=== PATIENT | male | born 1990 | race Caucasian/White ===

== ENCOUNTER 2019-02-27 13:32 | Emergency (ER) | payer SELFPAY ==
[~2019-02-27] VITALS: Ht 180.3 cm; Wt 113.0 kg
[~2019-02-27 13:32] MED LIST: ENOX80DI10 SUBCUT; PER10325T PO; WARF6TAB49 PO
[2019-02-27] MEDS ORDERED: ketorolac trometh inj. 60 MG/2 ML VIAL IM ONE (14:10)
[2019-02-27 14:29] LABS: BASOPHILS % (AUTO) 0.2 % (0-1); EOSINOPHILS # (AUTO) 0.3 X10'3 (0-0.9); EOSINOPHILS % (AUTO) 3.4 % (0-6); HEMATOCRIT 45.4 % (42.0-52.0); HEMOGLOBIN 15.1 g/dl (14.0-17.9); LYMPHOCYTES # (AUTO) 3.7 X10'3 (1.1-4.8); LYMPHOCYTES % (AUTO) 36.2 % (21-51); MEAN CORPUSCULAR HGB CONC 33.2 g/dL (33.0-36.5); MEAN CORPUSCULAR VOLUME 96.5 FL (78-98); MEAN PLATELET VOLUME 8.3 FL (7.4-10.4); MONOCYTES # (AUTO) 2.1 X10'3 (0-0.9); MONOCYTES % (AUTO) 20.7 % (2-12); NEUTROPHILS % (AUTO) 39.5 % (42-75); PLATELET COUNT 345 X10'3 (140-440); RED CELL DISTRIBUTION WIDTH 14.5 % (11.5-14.5); WHITE BLOOD COUNT 10.1 X10'3 (4.5-11.0)
[2019-02-27 14:35] LABS: ALANINE AMINOTRANSFERASE 37 U/L (12-78); ALBUMIN 2.7 G/DL (3.4-5.0); ALBUMIN/GLOBULIN RATIO 0.7 (1.1-1.5); ALKALINE PHOSPHATASE 83 IU/L (46-116); ANION GAP 11 (8-16); ASPARTATE AMINO TRANSFERASE 18 U/L (10-37); BILIRUBIN,TOTAL 0.5 MG/DL (0.1-1.0); BLOOD UREA NITROGEN 8 MG/DL (7-18); BUN/CREATININE RATIO 9.3 (5.4-32.0); CALCIUM 7.9 MG/DL (8.5-10.1); CHLORIDE 111 MMOL/L (99-107); CREATININE 0.86 MG/DL (0.60-1.10); GLUCOSE 84 MG/DL (70-104); LIPASE 182 U/L (73-393); POTASSIUM 3.7 MMOL/L (3.5-5.1); SODIUM 145 MMOL/L (135-145); TOTAL CARBON DIOXIDE 23.5 MMOL/L (24-32); TOTAL PROTEIN 6.4 G/DL (6.4-8.2); eGFR > 90 ML/MIN
[2019-02-27] MEDS ORDERED: HYDR-4353 PO (15:12)
[2019-02-27 15:19] VITALS: BP 111/68
== END 2019-02-27 15:21 | disposition home or self-care (01) ==
LOC: ER 13:33
DX: K43.9 Ventral hernia without obstruction or gangrene (principal); E11.9 Type 2 diabetes mellitus without complications; F10.99 Alcohol use, unspecified with unspecified alcohol-induced disorder; Z86.718 Personal history of other venous thrombosis and embolism; Z90.49 Acquired absence of other specified parts of digestive tract; Z90.89 Acquired absence of other organs; Z79.01 Long term (current) use of anticoagulants; Z79.899 Other long term (current) drug therapy; Y90.9 Presence of alcohol in blood, level not specified
CPT/HCPCS: 36415; 74176; 80053; 83690; 85025; 85610; 96372; 99284; J1885

== ENCOUNTER 2019-07-21 15:42 | Inpatient (IN) | payer BC, MEDICAID ==
[~2019-07-21] VITALS: Ht 180.3 cm; Wt 119.0 kg
[2019-07-21] MEDS ORDERED: ondansetron/PF 4mg/2ml inj IV ONE (17:20)
[2019-07-21] MEDS ORDERED: normal saline 1000ML IV soln IVB ONE (17:20)
[2019-07-21] MEDS ORDERED: morphine 4 MG/ML inj SYRINge IV ONE (17:20)
[2019-07-21] MEDS ORDERED: iohexol 300mg/ml 100ml inj. ONE (17:54)
[2019-07-21 17:59] LABS: BASOPHILS % (AUTO) 0.5 % (0-1); EOSINOPHILS # (AUTO) 0.3 X10'3 (0-0.9); EOSINOPHILS % (AUTO) 3.2 % (0-6); HEMATOCRIT 45.5 % (42.0-52.0); HEMOGLOBIN 15.5 g/dl (14.0-17.9); LYMPHOCYTES # (AUTO) 2.9 X10'3 (1.1-4.8); LYMPHOCYTES % (AUTO) 33.2 % (21-51); MEAN CORPUSCULAR HEMOGLOBIN 33.2 PG (27.0-31.0); MEAN CORPUSCULAR HGB CONC 34.1 g/dL (33.0-36.5); MEAN CORPUSCULAR VOLUME 97.3 FL (78-98); MEAN PLATELET VOLUME 8.4 FL (7.4-10.4); MONOCYTES # (AUTO) 1.3 X10'3 (0-0.9); NEUTROPHILS # (AUTO) 4.3 X10'3 (1.8-7.7); NEUTROPHILS % (AUTO) 48.1 % (42-75); PLATELET COUNT 491 X10'3 (140-440); RED BLOOD COUNT 4.68 X10'6 (4.70-6.10); RED CELL DISTRIBUTION WIDTH 14.1 % (11.5-14.5); WHITE BLOOD COUNT 8.9 X10'3 (4.5-11.0)
[2019-07-21 18:25] LABS: PARTIAL THROMBOPLASTIN TIME 46 SECONDS (22-32)
[2019-07-21 18:32] LABS: ALANINE AMINOTRANSFERASE 47 U/L (12-78); ALBUMIN 3.1 G/DL (3.4-5.0); ALBUMIN/GLOBULIN RATIO 0.7 (1.1-1.5); ALKALINE PHOSPHATASE 103 IU/L (46-116); ANION GAP 8 (8-16); ASPARTATE AMINO TRANSFERASE 40 U/L (10-37); BILIRUBIN,TOTAL 0.3 MG/DL (0.1-1.0); BLOOD UREA NITROGEN 10 MG/DL (7-18); BUN/CREATININE RATIO 11.4 (5.4-32.0); CALCIUM 9.1 MG/DL (8.5-10.1); CHLORIDE 113 MMOL/L (99-107); CREATININE 0.88 MG/DL (0.60-1.10); GLUCOSE 81 MG/DL (70-104); LIPASE 146 U/L (73-393); MAGNESIUM 1.9 MG/DL (1.5-2.4); POTASSIUM 3.9 MMOL/L (3.5-5.1); SODIUM 148 MMOL/L (135-145); TOTAL CARBON DIOXIDE 27.2 MMOL/L (24-32); TOTAL PROTEIN 7.4 G/DL (6.4-8.2); eGFR > 90 ML/MIN
[2019-07-21] MEDS ORDERED: piperacillin/tazo 3.375gm/50ml 50 ML IV ONE (19:10)
[2019-07-21] MEDS ORDERED: VANCOMYCIN 1gm/H2O 200ml PB 200 ML IV ONE (19:15)
[2019-07-21] MEDS: morphine 2 MG/ML inj. syringe IV PRN ×2 (19:54→21:51)
--- NOTE | 2019-07-21 21:12 | NUR ---
pt moved to hospital bed for comfort. He is also given dinner. Pt will be NPO at midnight.
[2019-07-21] MEDS ORDERED: morphine 2 MG/ML inj. syringe IV PRN (21:15)
[2019-07-21] MEDS ORDERED: ondansetron/PF 4mg/2ml inj IV PRN (21:15)
[2019-07-21] MEDS: normal saline 1000ml 1,000 ML IV SCH (21:18)
--- NOTE | 2019-07-21 21:21 | NUR ---
PER PATIENT DR. HAMMOND TOLD HIM NOT TO TAKE HIS COUMADIN TONIGHT. PHARMACIST NOTIFIED. MED REC COMPLETED, DR. CHAMBERS JUST AT BEDSIDE FOR ADMISSION.
[2019-07-21] MEDS ORDERED: AMOX-580 PO (22:50)
[2019-07-21] MEDS ORDERED: OXYC-511 PO (22:50)
[2019-07-22] VITALS (16 sets, daily range): BP systolic 92–123; BP diastolic 49–69
--- NOTE | 2019-07-22 00:16 | NUR ---
Pt transferred via bed to 20. Educated that he is NPO now, and that an antibiotic is ordered for 0200. Pt requesting pain medication but per orders this RN is unable to administer at this time. Pt verblaized understanding, and then stated he would attempt to sleep. Belongings at bedside.
--- NOTE | 2019-07-22 01:19 | NUR ---
Pt sleeping, appears comfortable. No distress noted, will continue to monitor.
[2019-07-22] MEDS: clindamycin 600mg/D5W 50ml 50 ML IV SCH ×4 (02:07→19:33)
[2019-07-22] MEDS: morphine 2 MG/ML inj. syringe IV PRN ×4 (02:10→23:04)
--- NOTE | 2019-07-22 02:55 | NUR ---
Pt given scheduled antibitoic and requested pain medication for abdominal pain 02/19. Pt not sleeping at this time due to the floor activities. This RN encouraged pt to close eyes to attempt to rest, and offerred ear plugs which the pt declined.
--- NOTE | 2019-07-22 07:30 | NUR ---
Patient in room [facility]. I have received report from Renetta PERRY and had the opportunity to ask questions and assume patient care.
[2019-07-22] MEDS: normal saline 1000ml 1,000 ML IV SCH ×2 (07:58→17:12)
[2019-07-22 11:14] LABS: BASOPHILS % (AUTO) 0.3 % (0-1); EOSINOPHILS # (AUTO) 0.4 X10'3 (0-0.9); EOSINOPHILS % (AUTO) 6.7 % (0-6); HEMATOCRIT 41.3 % (42.0-52.0); HEMOGLOBIN 13.9 g/dl (14.0-17.9); LYMPHOCYTES # (AUTO) 1.9 X10'3 (1.1-4.8); LYMPHOCYTES % (AUTO) 31.1 % (21-51); MEAN CORPUSCULAR HEMOGLOBIN 32.6 PG (27.0-31.0); MEAN CORPUSCULAR HGB CONC 33.7 g/dL (33.0-36.5); MEAN CORPUSCULAR VOLUME 96.5 FL (78-98); MEAN PLATELET VOLUME 8.1 FL (7.4-10.4); MONOCYTES # (AUTO) 0.9 X10'3 (0-0.9); MONOCYTES % (AUTO) 14.4 % (2-12); NEUTROPHILS # (AUTO) 2.8 X10'3 (1.8-7.7); NEUTROPHILS % (AUTO) 47.5 % (42-75); PLATELET COUNT 453 X10'3 (140-440); RED BLOOD COUNT 4.28 X10'6 (4.70-6.10)
--- NOTE | 2019-07-22 14:30 | NUR ---
PATIENT A&OX4, STATES PAIN BETTER CONTROLLED, V/S WNL, NEUROVASCULAR CHECKS INTACT, 20G PIV RUE, SCD ON, WV DRESSING TO ABDOMEN CDI AT 125 CONT SUCTION WITH NO LEAKS DETECTED. PATIENT TAKEN TO 324A WITH ALL BELONGINGS AND HOOKED UP TO MONITORS IN ROOM AND REPORT GIVEN TO RN WHO HAS TAKEN OVER PATIENT CARE.
[2019-07-22] MEDS ORDERED: ringers solution, lacted 1,000 ML IV SCH (14:46)
[2019-07-22] MEDS ORDERED: fentaNYL/PF 50MCG/1 ML 2ML syringe ONE (14:50)
[2019-07-22] MEDS ORDERED: fentaNYL/PF 50MCG/1 ML 2ML syringe IV PRN (14:50)
[2019-07-22] MEDS ORDERED: labetalol 20mg/4ml (5mg/ml) syringe IV PRN (14:50)
[2019-07-22] MEDS ORDERED: midazolam 2 mg/2 ml injection ONE (14:50)
[2019-07-22] MEDS ORDERED: morphine 4 MG/ML inj SYRINge IV PRN ×2 (14:50)
[2019-07-22] MEDS ORDERED: hydrALAZINE 20mg/ml inj. IV PRN (14:50)
[2019-07-22] MEDS ORDERED: ondansetron/PF 4mg/2ml inj IV PRN (14:50)
[2019-07-22] MEDS ORDERED: LIDOcaine 1%/PF 5ML 10 MG/ML VIAL ONE (15:06)
[2019-07-22] MEDS ORDERED: sevoflurane 250ml liquid IH ONE (15:06)
[2019-07-22] MEDS ORDERED: propofol 10mg/ml 20ml vial IV ONE (15:06)
[2019-07-22] MEDS ORDERED: HYDROcodone/acetaminophen 5mg/325mg tablet PO PRN (15:45)
--- NOTE | 2019-07-22 15:50 | NUR ---
Received from OR via BED, accompanied by Anesthesiologist DR COLEMAN--- and report given by Anesthesiolgist. PATIENT A&OX4, DENIES PAIN, V/S WNL, NEUROVASCULAR CHECKS INTACT, 20G PIV RUE, SCD ON, WV DRESSING TO ABDOMEN CDI AT 125 CONT SUCTION WITH NO LEAKS DETECTED.
[2019-07-22] MEDS: fentaNYL/PF 50MCG/1 ML 2ML syringe IV PRN ×2 (16:04→16:14)
--- NOTE | 2019-07-22 18:30 | NUR ---
Patient in room [facility]. I have received report from ORLANDO Oliver and had the opportunity to ask questions and assume patient care. pT awake alert and oriented, sitting up in bed toll reg dinner. Visitor at bedside. Addendum: 07/22/19 at 1904 by Kait Haile RN Amended: Links added.
--- NOTE | 2019-07-22 18:31 | NUR ---
Problems reprioritized. Patient report given, questions answered & plan of care reviewed with Caitie PERRY.
--- NOTE | 2019-07-22 19:30 | NUR ---
Req pain medications, states throbbing pain. mid abd wound vac intact. bs+, lungs clear. scd in place. Addendum: 07/22/19 at 1950 by Kait Haile RN Amended: Links added.
[2019-07-22] MEDS: lactobacillus rhamnosus 10,000 MMU CELLS/CAPSULE PO SCH (19:33)
[2019-07-22] MEDS: HYDROcodone/acetaminophen 10/325mg tab PO PRN (19:33)
[2019-07-23] VITALS: BP 96/51
[2019-07-23] MEDS: clindamycin 600mg/D5W 50ml 50 ML IV SCH ×4 (01:59→20:15)
[2019-07-23] MEDS: normal saline 1000ml 1,000 ML IV SCH (03:12)
[2019-07-23] MEDS: morphine 2 MG/ML inj. syringe IV PRN ×4 (03:26→20:16)
[2019-07-23 05:30] LABS: BASOPHILS % (AUTO) 0.5 % (0-1); EOSINOPHILS # (AUTO) 0.5 X10'3 (0-0.9); HEMATOCRIT 39.5 % (42.0-52.0); HEMOGLOBIN 13.6 g/dl (14.0-17.9); LYMPHOCYTES # (AUTO) 2.5 X10'3 (1.1-4.8); LYMPHOCYTES % (AUTO) 34.7 % (21-51); MEAN CORPUSCULAR HEMOGLOBIN 32.9 PG (27.0-31.0); MEAN CORPUSCULAR HGB CONC 34.3 g/dL (33.0-36.5); MEAN CORPUSCULAR VOLUME 95.9 FL (78-98); MEAN PLATELET VOLUME 8.5 FL (7.4-10.4); MONOCYTES # (AUTO) 1.1 X10'3 (0-0.9); MONOCYTES % (AUTO) 15.6 % (2-12); NEUTROPHILS % (AUTO) 42.2 % (42-75); PLATELET COUNT 459 X10'3 (140-440); RED BLOOD COUNT 4.12 X10'6 (4.70-6.10); RED CELL DISTRIBUTION WIDTH 13.9 % (11.5-14.5); WHITE BLOOD COUNT 7.1 X10'3 (4.5-11.0)
[2019-07-23 06:30] VITALS: BP 98/54
--- NOTE | 2019-07-23 07:00 | NUR ---
Patient in room [facility]. I have received report from ORLANDO Blood and had the opportunity to ask questions and assume patient care.
--- NOTE | 2019-07-23 07:01 | NUR ---
Problems reprioritized. Patient report given, questions answered & plan of care reviewed with ORLANDO Jason. Addendum: 07/23/19 at 0701 by Kait Haile RN Amended: Links added.
[2019-07-23] MEDS: lactobacillus rhamnosus 10,000 MMU CELLS/CAPSULE PO SCH ×2 (07:57→20:15)
[2019-07-23 11:00] VITALS: BP 103/62
--- NOTE | 2019-07-23 18:40 | NUR ---
Patient in room [facility]. I have received report from ORLANDO Jason and had the opportunity to ask questions and assume patient care. Addendum: 07/23/19 at 1854 by Kait Haile RN Amended: Links added.
--- NOTE | 2019-07-23 18:40 | NUR ---
Problems reprioritized. Patient report given, questions answered & plan of care reviewed with ORLANDO Rodriguez.
[2019-07-23 20:00] VITALS: BP 109/61
[2019-07-23] MEDS ORDERED: warfarin 3mg tablet PO ONE (21:00)
[2019-07-24] VITALS: BP 106/53
[2019-07-24] MEDS: morphine 2 MG/ML inj. syringe IV PRN ×5 (00:04→18:56)
[2019-07-24] MEDS: clindamycin 600mg/D5W 50ml 50 ML IV SCH ×4 (01:24→20:45)
[2019-07-24 05:24] LABS: BASOPHILS % (AUTO) 0.4 % (0-1); EOSINOPHILS # (AUTO) 0.3 X10'3 (0-0.9); EOSINOPHILS % (AUTO) 5.7 % (0-6); HEMOGLOBIN 14.3 g/dl (14.0-17.9); LYMPHOCYTES # (AUTO) 2.4 X10'3 (1.1-4.8); LYMPHOCYTES % (AUTO) 40.1 % (21-51); MEAN CORPUSCULAR HEMOGLOBIN 32.5 PG (27.0-31.0); MEAN CORPUSCULAR VOLUME 95.7 FL (78-98); MEAN PLATELET VOLUME 8.6 FL (7.4-10.4); NEUTROPHILS # (AUTO) 2.3 X10'3 (1.8-7.7); NEUTROPHILS % (AUTO) 37.8 % (42-75); PLATELET COUNT 434 X10'3 (140-440); RED BLOOD COUNT 4.39 X10'6 (4.70-6.10); RED CELL DISTRIBUTION WIDTH 13.7 % (11.5-14.5); WHITE BLOOD COUNT 6.1 X10'3 (4.5-11.0)
[2019-07-24 06:01] LABS: TOTAL CELLS COUNTED 100
[2019-07-24 06:02] LABS: PLATELET ESTIMATE NORMAL
--- NOTE | 2019-07-24 06:10 | NUR ---
Patient in room [facility]. I have received report from ORLANDO Rodriguez and had the opportunity to ask questions and assume patient care.
[2019-07-24 06:30] VITALS: BP 100/56
--- NOTE | 2019-07-24 06:30 | NUR ---
Problems reprioritized. Patient report given, questions answered & plan of care reviewed with ORLANDO WEI. Addendum: 07/24/19 at 0657 by Kait Haile RN Amended: Links added.
[2019-07-24] MEDS: lactobacillus rhamnosus 10,000 MMU CELLS/CAPSULE PO SCH ×2 (08:09→20:45)
[2019-07-24 11:00] VITALS: BP 110/49
--- NOTE | 2019-07-24 18:30 | NUR ---
Problems reprioritized. Patient report given, questions answered & plan of care reviewed with ORLANDO Pepper.
--- NOTE | 2019-07-24 18:30 | NUR ---
Patient in room [facility]. I have received report from SANJUANA and had the opportunity to ask questions and assume patient care.
[2019-07-24 19:00] VITALS: BP 109/67
[2019-07-24] MEDS: HYDROcodone/acetaminophen 10/325mg tab PO PRN (20:46)
[2019-07-24] MEDS ORDERED: warfarin 5mg tablet PO ONE (21:00)
[2019-07-25] VITALS: BP 102/56
[2019-07-25] MEDS: morphine 2 MG/ML inj. syringe IV PRN ×3 (00:39→10:10)
[2019-07-25] MEDS: clindamycin 600mg/D5W 50ml 50 ML IV SCH ×3 (02:10→15:25)
--- NOTE | 2019-07-25 06:05 | NUR ---
Patient in room [facility]. I have received report from ORLANDO Pepper and had the opportunity to ask questions and assume patient care.
--- NOTE | 2019-07-25 06:16 | NUR ---
Problems reprioritized. Patient report given, questions answered & plan of care reviewed with SANJUANA.
[2019-07-25 06:30] VITALS: BP 105/56
[2019-07-25] MEDS: lactobacillus rhamnosus 10,000 MMU CELLS/CAPSULE PO SCH (09:01)
[2019-07-25 11:00] VITALS: BP 106/53
[2019-07-25] MEDS: HYDROcodone/acetaminophen 10/325mg tab PO PRN (15:28)
--- NOTE | 2019-07-25 15:53 | NUR ---
DC & home wound vac inst provided to pt.
--- NOTE | 2019-07-25 17:30 | NUR ---
IV DC'd, tip intact. All belongings sent w/pt. Pt ambulated to front lobby.
[2019-07-25] MEDS ORDERED: warfarin 5mg tablet PO ONE (21:00)
== END 2019-07-25 17:10 | disposition home or self-care (01) | DRG 908 ==
LOC: ER 15:43 → ED HOLD 21:21 → SUR 3N 07-22 07:57
PROVIDERS: ADMIT Internal Medicine; ATTEND Internal Medicine
PROC: BW211ZZ Computerized Tomography (CT Scan) of Abdomen and Pelvis using Low Osmolar Contrast (ICD-10-PCS; 2019-07-21)
PROC: 0W9F0ZZ Drainage of Abdominal Wall, Open Approach (ICD-10-PCS; principal; 2019-07-22 15:06)
DX: T81.31XA Disruption of external operation (surgical) wound, not elsewhere classified, initial encounter (principal); T81.41XA Infection following a procedure, superficial incisional surgical site, initial encounter; D68.59 Other primary thrombophilia; L02.211 Cutaneous abscess of abdominal wall; E66.9 Obesity, unspecified; Y83.8 Other surgical procedures as the cause of abnormal reaction of the patient, or of later complication, without mention of misadventure at the time of the procedure; E11.9 Type 2 diabetes mellitus without complications; Z79.01 Long term (current) use of anticoagulants; Z82.5 Family history of asthma and other chronic lower respiratory diseases; Z83.3 Family history of diabetes mellitus; Z86.718 Personal history of other venous thrombosis and embolism; Z90.81 Acquired absence of spleen; Z68.36 Body mass index [BMI] 36.0-36.9, adult; Z90.49 Acquired absence of other specified parts of digestive tract; Z93.2 Ileostomy status; Y92.89 Other specified places as the place of occurrence of the external cause; Z79.899 Other long term (current) drug therapy
CPT/HCPCS: 96365; 96375; 99285; Z7506; 36415; 74177; 80053; 82948; 83605; 83690; 83735; 85025; 85027; 85610; 85730; 87040; 87070; 87075; 87077; 87081; 87186; A4618; A6550; A7000; G0378; J2250; J2270; J2405; J2543; J2704; J3010; J3370; J3490; J7030; J7120; Q9967

== ENCOUNTER 2020-03-03 14:48 | Inpatient (IN) | payer BC, MEDICAID ==
[~2020-03-03] VITALS: Ht 177.8 cm; Wt 120.5 kg
[~2020-03-03 14:48] MED LIST changes: -ENOX80DI10 SUBCUT; +OXYC1TAB17 PO; -PER10325T PO
[2020-03-03 15:14] LABS: BASOPHILS % (AUTO) 0.5 % (0-1); EOSINOPHILS # (AUTO) 0.1 X10'3 (0-0.9); EOSINOPHILS % (AUTO) 1.2 % (0-6); HEMOGLOBIN 15.7 g/dl (14.0-17.9); LYMPHOCYTES # (AUTO) 2.4 X10'3 (1.1-4.8); LYMPHOCYTES % (AUTO) 29.5 % (21-51); MEAN CORPUSCULAR HEMOGLOBIN 32.9 PG (27.0-31.0); MEAN CORPUSCULAR HGB CONC 33.4 g/dL (33.0-36.5); MEAN CORPUSCULAR VOLUME 98.5 FL (78-98); MONOCYTES # (AUTO) 1.6 X10'3 (0-0.9); NEUTROPHILS # (AUTO) 4.1 X10'3 (1.8-7.7); NEUTROPHILS % (AUTO) 49.8 % (42-75); PLATELET COUNT 325 X10'3 (140-440); RED BLOOD COUNT 4.77 X10'6 (4.70-6.10); RED CELL DISTRIBUTION WIDTH 14.1 % (11.5-14.5); WHITE BLOOD COUNT 8.2 X10'3 (4.5-11.0)
[2020-03-03 15:29] LABS: CLARITY,URINE CLEAR (Clear); COLOR,URINE YELLOW (Yellow); GLUCOSE, URINE NEGATIVE (Neg); KETONES,URINE >=80 mg/dl (Neg); LEUKOCYTE ESTERASE ,URINE NEGATIVE (Neg); NITRITES, URINE NEGATIVE (Neg); OCCULT BLOOD,URINE NEGATIVE (Neg); PROTEIN,URINE NEGATIVE (Neg); UA COLLECTION TYPE CLN CATCH MIDSTREAM
[2020-03-03] MEDS ORDERED: iohexol 350MG/ML 100ml bottle IV ONE (15:37)
[2020-03-03 15:38] LABS: ALANINE AMINOTRANSFERASE 145 U/L (12-78); ALBUMIN 2.7 G/DL (3.4-5.0); ALBUMIN/GLOBULIN RATIO 0.7 (1.1-1.5); ALKALINE PHOSPHATASE 205 IU/L (46-116); ANION GAP 8 (8-16); ASPARTATE AMINO TRANSFERASE 155 U/L (10-37); BILIRUBIN,TOTAL 1.8 MG/DL (0.1-1.0); BLOOD UREA NITROGEN 9 MG/DL (7-18); BUN/CREATININE RATIO 10.2 (5.4-32.0); CALCIUM 8.4 MG/DL (8.5-10.1); CHLORIDE 105 MMOL/L (99-107); CREATININE 0.88 MG/DL (0.60-1.10); GLUCOSE 82 MG/DL (70-104); MAGNESIUM 1.7 MG/DL (1.5-2.4); POTASSIUM 3.7 MMOL/L (3.5-5.1); SODIUM 140 MMOL/L (135-145); TOTAL CARBON DIOXIDE 26.8 MMOL/L (24-32); TOTAL PROTEIN 6.7 G/DL (6.4-8.2); eGFR > 90 ML/MIN
[2020-03-03] MEDS ORDERED: ondansetron/PF 4mg/2ml inj IV ONE ×2 (15:40→20:15)
[2020-03-03] MEDS ORDERED: morphine 4 MG/ML inj SYRINge IV ONE (15:40)
[2020-03-03] MEDS ORDERED: heparin 25,000 UNIT/250ml bag 250 ML IV SCH (17:27)
[2020-03-03 17:28] LABS: LIPASE 124 U/L (73-393)
[2020-03-03] MEDS ORDERED: heparin 10,000 units/1 ML INJ IV PRN (17:30)
[2020-03-03] MEDS ORDERED: heparin 10,000 units/1 ML INJ IV ONE ×2 (17:30→17:35)
[2020-03-03 17:46] LABS: PARTIAL THROMBOPLASTIN TIME 37 SECONDS (22-32)
[2020-03-03] MEDS ORDERED: WARF-55 PO (18:02)
[2020-03-03] MEDS ORDERED: fentaNYL/PF 50MCG/1 ML 2ML syringe IV ONE (18:55)
[2020-03-03] MEDS ORDERED: magnesium 2GM in 50ml NS 50 ML IV PRN (20:35)
[2020-03-03] MEDS ORDERED: ondansetron/PF 4mg/2ml inj IV PRN (20:35)
[2020-03-03] MEDS ORDERED: magnesium Cl slow-release 64mg tablet PO PRN (20:35)
[2020-03-03] MEDS ORDERED: potassium Cl 20 mEq SR tablet PO PRN ×2 (20:35)
[2020-03-03] MEDS ORDERED: potassium CL 10mEq/100ml bag 100 ML IV PRN ×2 (20:35)
[2020-03-03] MEDS ORDERED: magnesium 4gm in 100ml NS 100 ML IV PRN (20:35)
[2020-03-03] MEDS ORDERED: acetaminophen 325mg tablet PO PRN (20:35)
[2020-03-03 22:10] VITALS: BP 108/47
[2020-03-03] MEDS: morphine 2 MG/ML inj. syringe IV PRN (22:18)
[2020-03-03] MEDS: normal saline 1000ml 1,000 ML IV SCH (22:18)
--- NOTE | 2020-03-04 02:00 | NUR ---
Received critical lab value for ptt of >139. Heparin infusion stopped at this time with page to hospitalist Mervat of critical value.
[2020-03-04 02:01] LABS: PARTIAL THROMBOPLASTIN TIME > 139 SECONDS (22-32)
[2020-03-04] MEDS: morphine 2 MG/ML inj. syringe IV PRN ×2 (02:29→20:47)
--- NOTE | 2020-03-04 02:35 | NUR ---
Second page sent to MD Crowell regarding critical lab value PTT of >139. Received call back to continue heparin drip per protocol.
--- NOTE | 2020-03-04 05:13 | NUR ---
Request made to lab at 0235 for them to collect lab draw due at 0400 for PTT r/t hard stick and multiple attempts at 0000 to collect labs. At 0435 second call placed to lab for lab draw. At 0445 this nurse went in patient's room to attempt lab draw as lab was still not here and heparin drip needs to be restarted. 2 attempts made but unable to collect blood for lab draw as ordered. when exiting patient room noticed laboratory apparatus glass blower on floor and requested for a third time to have labs drawn, informed that someone should have been here. Watershed Tender in room now.
--- NOTE | 2020-03-04 05:27 | NUR ---
Attempt made to restart heparin to find order had reached original stop date and time. Paged MD Crowell if she would like to reorder heparin drip. New order received to order heparin drip per protocol.
[2020-03-04] MEDS ORDERED: heparin 10,000 units/1 ML INJ IV PRN (05:30)
[2020-03-04] MEDS ORDERED: heparin 10,000 units/1 ML INJ IV ONE (05:30)
[2020-03-04] MEDS: heparin 25,000 UNIT/250ml bag 250 ML IV SCH ×5 (05:39→21:19)
[2020-03-04 05:53] LABS: BASOPHILS % (AUTO) 0.3 % (0-1); EOSINOPHILS # (AUTO) 0.1 X10'3 (0-0.9); EOSINOPHILS % (AUTO) 1.6 % (0-6); HEMOGLOBIN 14.8 g/dl (14.0-17.9); LYMPHOCYTES # (AUTO) 3.2 X10'3 (1.1-4.8); LYMPHOCYTES % (AUTO) 38.1 % (21-51); MEAN CORPUSCULAR HGB CONC 33.7 g/dL (33.0-36.5); MEAN CORPUSCULAR VOLUME 97.9 FL (78-98); MEAN PLATELET VOLUME 8.8 FL (7.4-10.4); MONOCYTES # (AUTO) 1.7 X10'3 (0-0.9); MONOCYTES % (AUTO) 20.2 % (2-12); NEUTROPHILS # (AUTO) 3.3 X10'3 (1.8-7.7); NEUTROPHILS % (AUTO) 39.8 % (42-75); PLATELET COUNT 320 X10'3 (140-440); RED BLOOD COUNT 4.49 X10'6 (4.70-6.10); RED CELL DISTRIBUTION WIDTH 13.8 % (11.5-14.5); WHITE BLOOD COUNT 8.3 X10'3 (4.5-11.0)
[2020-03-04 05:57] LABS: PARTIAL THROMBOPLASTIN TIME 43 SECONDS (22-32)
[2020-03-04 06:00] VITALS: BP 114/66
[2020-03-04 06:17] LABS: ALBUMIN 2.3 G/DL (3.4-5.0); ANION GAP 8 (8-16); BLOOD UREA NITROGEN 8 MG/DL (7-18); BUN/CREATININE RATIO 8.7 (5.4-32.0); CHLORIDE 107 MMOL/L (99-107); CREATININE 0.92 MG/DL (0.60-1.10); GLUCOSE 88 MG/DL (70-104); MAGNESIUM 1.8 MG/DL (1.5-2.4); POTASSIUM 3.7 MMOL/L (3.5-5.1); SODIUM 142 MMOL/L (135-145); TOTAL CARBON DIOXIDE 27.5 MMOL/L (24-32); eGFR > 90 ML/MIN
[2020-03-04] MEDS: normal saline 1000ml 1,000 ML IV SCH ×3 (06:31→17:26)
--- NOTE | 2020-03-04 06:33 | NUR ---
Report given to Anh PERRY.
[2020-03-04] MEDS: K and/or MAG REPLACEMENT MC SCH ×2 (08:00→20:00)
[2020-03-04] MEDS: docusate sod 100mg capsule PO SCH ×2 (08:00→20:00)
[2020-03-04 10:00] VITALS: BP 101/50
[2020-03-04] MEDS ORDERED: HYDROcodone/acetaminophen 5mg/325mg tablet PO PRN (12:20)
[2020-03-04 14:23] LABS: PARTIAL THROMBOPLASTIN TIME 124 SECONDS (22-32)
--- NOTE | 2020-03-04 14:30 | NUR ---
4012b Richard Alanis Critical lab aPTT @ 124 H Stopping Heparin drip for 2 hours per protocol. #1299 Anh
[2020-03-04 17:00] VITALS: BP 115/60
--- NOTE | 2020-03-04 18:17 | NUR ---
Problems reprioritized. Patient report given, questions answered & plan of care reviewed with Sandy.
--- NOTE | 2020-03-04 18:24 | NUR ---
Pt requesting to be discharged r/t not being able to afford to miss work in the morning. He stated that if he the doctor won't discharge him then he may leave AMA. Page sent to MD Valerio to inform her of the patient's wishes at this time.
--- NOTE | 2020-03-04 18:45 | NUR ---
Patient in room [facility] 4012. I have received report from Sandy Moulton RN and had the opportunity to ask questions and assume patient care.
--- NOTE | 2020-03-04 18:59 | NUR ---
Paged MD Valerio again for patient regarding possible DC.
--- NOTE | 2020-03-04 19:32 | NUR ---
MD Valerio never returned multiple pages regarding patient request for discharge. Patient informed that MD Valerio never returned call and had 10 minute conversations about the risks of leaving AMA. Patient verbalized understanding and has decided to stay at this time. Educated the patient that he can change his mind at any point but that at this time the MD Valerio and MD Overton feels that he should continue with his care here. Patient again was able to verbalize understanding and his fears r/t leaving and possibly having to get a colostomy in the future. Call light within reach of patient.
[2020-03-04] MEDS ORDERED: warfarin 5mg tablet PO SCH (21:00)
[2020-03-04] MEDS ORDERED: warfarin 10mg tablet PO ONE (21:00)
[2020-03-04 22:00] VITALS: BP 104/57
[2020-03-05] MEDS: morphine 2 MG/ML inj. syringe IV PRN (02:03)
[2020-03-05] MEDS: normal saline 1000ml 1,000 ML IV SCH (03:26)
[2020-03-05 04:07] LABS: PARTIAL THROMBOPLASTIN TIME 50 SECONDS (22-32)
[2020-03-05] MEDS: heparin 25,000 UNIT/250ml bag 250 ML IV SCH (05:13)
--- NOTE | 2020-03-05 06:08 | NUR ---
Student documentation: I have reviewed and agree with all interventions, assessments performed and documented by Indigo Garrison. Student Medication Administration: For this medication-pass time frame, all medication were reviewed, dispensed, administered and documented per hospital policy by Indigo Garrison.
--- NOTE | 2020-03-05 06:09 | NUR ---
Report given to Anh PERRY.
--- NOTE | 2020-03-05 06:22 | NUR ---
Problems reprioritized. Patient report given, questions answered & plan of care reviewed with MYRIAM PERRY.
[2020-03-05 10:05] LABS: BASOPHILS % (AUTO) 0.3 % (0-1); EOSINOPHILS # (AUTO) 0.1 X10'3 (0-0.9); EOSINOPHILS % (AUTO) 2.1 % (0-6); HEMATOCRIT 42.5 % (42.0-52.0); HEMOGLOBIN 14.4 g/dl (14.0-17.9); LYMPHOCYTES # (AUTO) 2.5 X10'3 (1.1-4.8); LYMPHOCYTES % (AUTO) 36.5 % (21-51); MEAN CORPUSCULAR HEMOGLOBIN 32.9 PG (27.0-31.0); MEAN CORPUSCULAR HGB CONC 33.8 g/dL (33.0-36.5); MEAN CORPUSCULAR VOLUME 97.4 FL (78-98); MEAN PLATELET VOLUME 8.6 FL (7.4-10.4); MONOCYTES # (AUTO) 1.1 X10'3 (0-0.9); MONOCYTES % (AUTO) 16.1 % (2-12); NEUTROPHILS # (AUTO) 3.1 X10'3 (1.8-7.7); PLATELET COUNT 329 X10'3 (140-440); RED BLOOD COUNT 4.37 X10'6 (4.70-6.10); RED CELL DISTRIBUTION WIDTH 13.8 % (11.5-14.5); WHITE BLOOD COUNT 6.9 X10'3 (4.5-11.0)
[2020-03-05 10:14] LABS: PARTIAL THROMBOPLASTIN TIME 64 SECONDS (22-32)
[2020-03-05 10:16] LABS: ALBUMIN 2.1 G/DL (3.4-5.0); ANION GAP 5 (8-16); BLOOD UREA NITROGEN 5 MG/DL (7-18); BUN/CREATININE RATIO 6.3 (5.4-32.0); CALCIUM 7.9 MG/DL (8.5-10.1); CHLORIDE 110 MMOL/L (99-107); CREATININE 0.79 MG/DL (0.60-1.10); GLUCOSE 115 MG/DL (70-104); MAGNESIUM 1.7 MG/DL (1.5-2.4); POTASSIUM 3.4 MMOL/L (3.5-5.1); SODIUM 142 MMOL/L (135-145); TOTAL CARBON DIOXIDE 26.6 MMOL/L (24-32); eGFR > 90 ML/MIN
--- NOTE | 2020-03-05 11:49 | NUR ---
After a long discussion from Dr Crowell patient about how important it is for him to follow up on his INR. I called his [facility] spoke to Ciera Worthington the RN and she made him an appt at 1520 so he can go straight from here up there. I had patient sign a AMA for and am having him sign a record release form to send over labs needed to dose his Coumadin. Heparin was stopped and his IV was taken out at 1150, Patient is taking a shower and his is in Rebekah taking him back to [place] to his appt with his primary care provider. Mervat notified.
== END 2020-03-05 12:15 | disposition left against medical advice (07) | DRG 249 ==
LOC: ER 14:48 → ED HOLD 20:31 → ORTHO 4S 21:45
PROVIDERS: ADMIT Internal Medicine; ATTEND Internal Medicine
PROC: B4201ZZ Computerized Tomography (CT Scan) of Abdominal Aorta using Low Osmolar Contrast (ICD-10-PCS; principal; 2020-03-03)
PROC: B4241ZZ Computerized Tomography (CT Scan) of Superior Mesenteric Artery using Low Osmolar Contrast (ICD-10-PCS; 2020-03-03)
PROC: B4211ZZ Computerized Tomography (CT Scan) of Celiac Artery using Low Osmolar Contrast (ICD-10-PCS; 2020-03-03)
DX: R11.2 Nausea with vomiting, unspecified (principal); E11.9 Type 2 diabetes mellitus without complications; D68.61 Antiphospholipid syndrome; D68.9 Coagulation defect, unspecified; Z53.29 Procedure and treatment not carried out because of patient's decision for other reasons; Z90.81 Acquired absence of spleen; Z90.49 Acquired absence of other specified parts of digestive tract; Z79.899 Other long term (current) drug therapy
CPT/HCPCS: 36415; 71045; 74174; 80048; 80053; 81003; 83605; 83690; 83735; 84145; 85025; 85610; 85730; 87040; 87081; 93005; 99285; G0378; J1644; J2270; J2405; J3010; J7030; Q9967

== ENCOUNTER 2021-07-02 11:00 | Inpatient (IN) | payer MEDICAID ==
[2021-06-27 10:52] LABS: BASOPHILS % (AUTO) 0.4 % (0-1); EOSINOPHILS # (AUTO) 0.2 X10'3 (0-0.9); EOSINOPHILS % (AUTO) 3.9 % (0-6); LYMPHOCYTES # (AUTO) 2.7 X10'3 (1.1-4.8); LYMPHOCYTES % (AUTO) 42.3 % (21-51); MEAN CORPUSCULAR HEMOGLOBIN 33.3 PG (27.0-31.0); MEAN CORPUSCULAR HGB CONC 34.2 g/dL (33.0-36.5); MEAN CORPUSCULAR VOLUME 97.3 FL (78-98); MEAN PLATELET VOLUME 7.6 FL (7.4-10.4); MONOCYTES # (AUTO) 0.9 X10'3 (0-0.9); MONOCYTES % (AUTO) 14.2 % (2-12); NEUTROPHILS # (AUTO) 2.5 X10'3 (1.8-7.7); NEUTROPHILS % (AUTO) 39.2 % (42-75); PRE OP HEMATOCRIT 46.3 % (42.0-52.0); PRE OP HEMOGLOBIN 15.8 g/dL (14.0-17.9); PRE OP PLATELET COUNT 351 X10'3 (140-440); RED BLOOD COUNT 4.75 X10'6 (4.70-6.10); RED CELL DISTRIBUTION WIDTH 14.4 % (11.5-14.5)
[2021-06-27 11:03] LABS: ALBUMIN/GLOBULIN RATIO 0.8 (1.1-1.5); ALKALINE PHOSPHATASE 99 IU/L (46-116); BLOOD UREA NITROGEN 11 MG/DL (7-18); BUN/CREATININE RATIO 12.1 (5.4-32.0); CALCIUM 8.3 MG/DL (8.5-10.1); CHLORIDE 110 MMOL/L (99-107); CREATININE 0.91 MG/DL (0.60-1.10); PRE OP ALT 35 U/L (30-65); PRE OP ANION GAP 10 (8-16); PRE OP AST 23 U/L (10-37); PRE OP BILIRUB, TOTAL 0.9 MG/DL (0.0-1.0); PRE OP GLUCOSE 95 MG/DL (70-104); PRE OP SODIUM 146 MMOL/L (135-145); TOTAL CARBON DIOXIDE 26.2 MMOL/L (24-32); TOTAL PROTEIN 6.7 G/DL (6.4-8.2); eGFR > 90 ML/MIN
[~2021-07-02] VITALS: Ht 182.9 cm; Wt 99.3 kg
[2021-07-02] VITALS (22 sets, daily range): BP systolic 100–133; BP diastolic 58–87
[~2021-07-02 11:00] MED LIST changes: +BUPIVAcaine/PF 2.5 mg/ml (0.25%) 30ml vial ONE; +LIDOcaine 1% 30ml preserv. free vial ONE; -OXYC1TAB17 PO; +WARF-55 PO; -WARF6TAB49 PO; +cefazolin/dext.iso 2gm/50ml IV ONE; +famotidine 20mg tablet PO ONE; +ringers solution, lacted 1,000 ML IV SCH
[2021-07-02] MEDS ORDERED: proCHLORperazine 10 MG/2 ml inj IV PRN (11:25)
[2021-07-02] MEDS ORDERED: acetaminophen 1,000mg/100ml IV 100 ML IV PRN (11:25)
[2021-07-02] MEDS ORDERED: meperidine/PF 25mg/ml syringe IV PRN ×3 (11:25)
[2021-07-02] MEDS ORDERED: morphine 4 MG/ML inj SYRINge IV PRN (11:25)
[2021-07-02] MEDS ORDERED: labetalol 20mg/4ml (5mg/ml) syringe IV PRN (11:25)
[2021-07-02] MEDS ORDERED: hydrALAZINE 20mg/ml inj. IV PRN (11:25)
[2021-07-02] MEDS ORDERED: ondansetron/PF 4mg/2ml inj IV PRN ×2 (11:25→19:00)
[2021-07-02] MEDS ORDERED: morphine 2 MG/ML inj. syringe IV PRN (11:25)
[2021-07-02] MEDS ORDERED: ringers solution, lacted 1,000 ML IV SCH (11:25)
[2021-07-02 12:04] LABS: PRE OP INR 1.3 INR; PRE OP PROTIME 13.5 SECONDS (9.0-12.0)
[2021-07-02] MEDS ORDERED: BUPIVACAINE liposomal/PF 13.3 MG/ML vial IM ONE (13:13)
[2021-07-02] MEDS ORDERED: BUPIVAcaine/PF 2.5mg/ml (0.25%) 10ml vial ONE (13:13)
[2021-07-02] MEDS ORDERED: midazolam 1 mg/ML 2ml injection ONE (13:28)
[2021-07-02] MEDS ORDERED: fentaNYL /PF 50mcg/ml 5ml ampule ONE ×2 (13:58→16:48)
[2021-07-02] MEDS ORDERED: neostigmine methylsulfate 1 MG/ML 10ml vial ONE (14:12)
[2021-07-02] MEDS ORDERED: glycopyrrolate 0.2mg/ml inj ONE (14:12)
[2021-07-02] MEDS ORDERED: ondansetron/PF 4mg/2ml inj ONE (14:12)
[2021-07-02] MEDS ORDERED: dexamethasone sod phosphate 4mg/ml inj. ONE (14:12)
[2021-07-02] MEDS ORDERED: ceFAZolin 1000mg inj ONE ×2 (14:12→16:48)
[2021-07-02] MEDS ORDERED: LIDOcaine 2% (20mg/ml) 5ml vial ONE (14:12)
[2021-07-02] MEDS ORDERED: rocuronium 10mg/ml inj IV ONE (14:12)
[2021-07-02] MEDS ORDERED: propofol inj 20 ML IV ONE ×2 (14:12)
[2021-07-02] MEDS ORDERED: sugammadex 200mg/2ml injection IV ONE (17:54)
[2021-07-02] MEDS ORDERED: cefazolin/dext.iso 2gm/50ml 50 ML IV ONE (18:30)
--- NOTE | 2021-07-02 18:40 | NUR ---
PT ARRIVED TO RECOVERY ROOM VIA BED ACCOMPANIED BY DR. POTTER-ANESTHESIA REPORT GIVEN, VSS, DENIES PAIN, 20G PIV TO RIGHT WRIST-STARTED IN OR-LR RUNNING 100ML/HR, SCDS ON, WOUND VAC PRESENT-AT 125MMHG TO MIDLINE, NASIR TO LUQ WITH DARK RED DRAINAGE-NOTED TO DR HAMMOND THAT SXN DIFFICULT TO MAINTAIN-OKAYED BY , NG TO RIGHT NARE TO LOW CONT. SXN-NO DRAINAGE NOTED, TUBE MARKED AT NARE ENTRY.
[2021-07-02] MEDS ORDERED: naloxone 0.4 mg/ml inj IV PRN (19:00)
[2021-07-02] MEDS: HYDROmorph./NS 0.2 mg/ml CADD 100 ML IV SCH ×3 (19:39→23:49)
[2021-07-02] MEDS: Potassium Cl inj 20 MEQ in ringers solution, lacted 1,000 ML IV SCH (19:45)
--- NOTE | 2021-07-02 20:20 | NUR ---
PT AWAKENS EASILY, PAINFUL WHEN MOVING, BUT ABLE TO FALL ASLEEP EASILY, VSS, DILAUDID CADD STARTED AND PT EDUCATED ABOUT USE BUT WILL NEED REINFORCEMENT.
--- NOTE | 2021-07-02 20:22 | NUR ---
Report received from Suha PERRY.Pt arrived on unit at 2034 by bed accompanied by RN.Pt isalert and oriented x 4 and in no acute distress .Pt settled in room;NG set up and connected to low continuous suction ,IV fluids continued as ordered. VSS ,Pts CADD QUILL STRIPPER assessed and documented per MD order.FC is intact and draining adequate amounts of rito urine.Pt encouraged to utilize the pain pump for pain control.Will continue to monitor.
--- NOTE | 2021-07-02 20:50 | NUR ---
PT MANAGING DILAUDID CADD, PAINFUL BUT TOLERATING WELL, VSS, WOUND VAC INTACT-125MMHG CONT SXN TO MIDLINE, NASIR TO LUQ WITH BLOODY DRAINAGE AROUND TUBE OPENING-REINFORCED WITH 4X4'S-DR AWARE OF DRAINAGE, UPON ARRIVAL TO FLOOR FOUND TO HAVE SATURATED 4X4S AND ONTO GOWN-CASKET INSPECTOR IN ROOM UPON ARRIVAL, AWARE OF CURRENT DRAINAGE-WILL REINFORCE NEEDED, F/C- DRAINING, NG TO LOW CONT SXN, DILAUDID CADD 0.2MG X10MIN FOR PAIN, REPORT CALLED TO DEB RN-ALL QUESTIONS ANSWERED, TAKEN TO ROOM 355B WITH ALL BELONGINGS- CALLED TO UPDATE ON TRANSFER.
[2021-07-03] VITALS (7 sets, daily range): BP systolic 96–118; BP diastolic 57–76
[2021-07-03] MEDS: HYDROmorph./NS 0.2 mg/ml CADD 100 ML IV SCH ×12 (01:00→23:00)
[2021-07-03] MEDS: Potassium Cl inj 20 MEQ in ringers solution, lacted 1,000 ML IV SCH ×3 (03:50→14:59)
[2021-07-03 05:55] LABS: BASOPHILS % (AUTO) 0.2 % (0-1); EOSINOPHILS % (AUTO) 0 % (0-6); HEMATOCRIT 45.1 % (42.0-52.0); HEMOGLOBIN 15.3 g/dl (14.0-17.9); LYMPHOCYTES # (AUTO) 1.7 X10'3 (1.1-4.8); LYMPHOCYTES % (AUTO) 9.2 % (21-51); MEAN CORPUSCULAR HEMOGLOBIN 33.1 PG (27.0-31.0); MEAN CORPUSCULAR VOLUME 97.3 FL (78-98); MEAN PLATELET VOLUME 8.6 FL (7.4-10.4); MONOCYTES # (AUTO) 2.1 X10'3 (0-0.9); MONOCYTES % (AUTO) 11.3 % (2-12); NEUTROPHILS # (AUTO) 14.9 X10'3 (1.8-7.7); NEUTROPHILS % (AUTO) 79.3 % (42-75); PLATELET COUNT 311 X10'3 (140-440); RED BLOOD COUNT 4.63 X10'6 (4.70-6.10); RED CELL DISTRIBUTION WIDTH 14.4 % (11.5-14.5); WHITE BLOOD COUNT 18.8 X10'3 (4.5-11.0)
[2021-07-03 06:06] LABS: ALBUMIN 2.7 G/DL (3.4-5.0); ANION GAP 10 (8-16); BLOOD UREA NITROGEN 14 MG/DL (7-18); BUN/CREATININE RATIO 14.7 (5.4-32.0); CALCIUM 7.8 MG/DL (8.5-10.1); CHLORIDE 107 MMOL/L (99-107); CREATININE 0.95 MG/DL (0.60-1.10); GLUCOSE 132 MG/DL (70-104); POTASSIUM 4.1 MMOL/L (3.5-5.1); SODIUM 140 MMOL/L (135-145); eGFR > 90 ML/MIN
--- NOTE | 2021-07-03 06:54 | NUR ---
Patient in room [facility]. I have received report from ORLANDO Covarrubias and had the opportunity to ask questions and assume patient care.
[2021-07-03] MEDS: enoxaparin 100mg/ml syringe SUBCUT SCH ×2 (07:58→20:04)
[2021-07-03 08:46] LABS: BURR CELLS FEW; PLATELET ESTIMATE NORMAL; SCHISTOCYTES FEW
[2021-07-03] MEDS ORDERED: diphenhydrAMINE 25mg capsule PO PRN (11:20)
[2021-07-03] MEDS: diphenhydrAMINE 50 mg/ml inj IV PRN ×2 (11:38→18:37)
--- NOTE | 2021-07-03 13:05 | NUR ---
NG tube DC'd per Dr Overton order. Pt tolerated well. Will continue to monitor.
--- NOTE | 2021-07-03 13:42 | NUR ---
Initial: Pt admit for recurrent incisional hernia, s/p open hernia repair, lysis of adhesions, enterotomy repair and wound VAC placement. PO diet has just been advanced to clear liquids from NPO, pending first meal since diet advancement. Limited nutrition interventions at this time given current diet order. 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 No GI symptoms documented in EMR at this time. Will continue to follow and make recommendations as appropriate. Recommendations: 1) Advance to regular diet as medically indicated 2) Monitor need for ONS/additional protein with diet advancement 3) Bowel care PRN 4) Weekly scaled weights Addendum: 07/03/21 at [address] Amended: Links added.
--- NOTE | 2021-07-03 18:45 | NUR ---
Problems reprioritized. Patient report given, questions answered & plan of care reviewed with ORLANDO Covarrubias.
[2021-07-03] MEDS: warfarin 1mg tablet PO SCH (20:05)
[2021-07-03] MEDS: warfarin 5mg tablet PO SCH (21:02)
[2021-07-04] VITALS: BP 118/55
[2021-07-04] MEDS: diphenhydrAMINE 50 mg/ml inj IV PRN ×4 (00:48→21:11)
[2021-07-04] MEDS: HYDROmorph./NS 0.2 mg/ml CADD 100 ML IV SCH ×12 (01:00→23:00)
[2021-07-04] MEDS: Potassium Cl inj 20 MEQ in ringers solution, lacted 1,000 ML IV SCH ×3 (04:50→20:15)
--- NOTE | 2021-07-04 06:30 | NUR ---
Patient in room [facility]. I have received report from ORLANDO Covarrubias and had the opportunity to ask questions and assume patient care.
[2021-07-04 06:46] LABS: BASOPHILS % (AUTO) 0.3 % (0-1); EOSINOPHILS % (AUTO) 0.1 % (0-6); HEMATOCRIT 40.1 % (42.0-52.0); HEMOGLOBIN 13.3 g/dl (14.0-17.9); LYMPHOCYTES # (AUTO) 3.6 X10'3 (1.1-4.8); LYMPHOCYTES % (AUTO) 23.9 % (21-51); MEAN CORPUSCULAR HEMOGLOBIN 32.9 PG (27.0-31.0); MEAN CORPUSCULAR HGB CONC 33.3 g/dL (33.0-36.5); MEAN CORPUSCULAR VOLUME 98.9 FL (78-98); MEAN PLATELET VOLUME 8.9 FL (7.4-10.4); MONOCYTES # (AUTO) 3.1 X10'3 (0-0.9); MONOCYTES % (AUTO) 20.8 % (2-12); NEUTROPHILS # (AUTO) 8.2 X10'3 (1.8-7.7); NEUTROPHILS % (AUTO) 54.9 % (42-75); PLATELET COUNT 262 X10'3 (140-440); RED BLOOD COUNT 4.05 X10'6 (4.70-6.10); RED CELL DISTRIBUTION WIDTH 14.5 % (11.5-14.5); WHITE BLOOD COUNT 14.9 X10'3 (4.5-11.0)
[2021-07-04 06:54] LABS: ALBUMIN 2.2 G/DL (3.4-5.0); ANION GAP 7 (8-16); BLOOD UREA NITROGEN 12 MG/DL (7-18); BUN/CREATININE RATIO 13.6 (5.4-32.0); CALCIUM 7.6 MG/DL (8.5-10.1); CHLORIDE 105 MMOL/L (99-107); CREATININE 0.88 MG/DL (0.60-1.10); GLUCOSE 99 MG/DL (70-104); POTASSIUM 3.8 MMOL/L (3.5-5.1); SODIUM 136 MMOL/L (135-145); TOTAL CARBON DIOXIDE 24.3 MMOL/L (24-32); eGFR > 90 ML/MIN
[2021-07-04 07:00] VITALS: BP 113/62
[2021-07-04] MEDS: enoxaparin 100mg/ml syringe SUBCUT SCH ×2 (07:34→19:54)
[2021-07-04 07:38] LABS: PLATELET ESTIMATE NORMAL; TOTAL CELLS COUNTED 100
[2021-07-04 07:39] LABS: LARGE PLATELETS FEW
[2021-07-04 07:40] LABS: BURR CELLS FEW
[2021-07-04 11:30] VITALS: BP 106/64
[2021-07-04] MEDS: CADD PCA waste documentation MC PRN (13:47)
--- NOTE | 2021-07-04 15:40 | NUR ---
WOUND INFECTION EDUCATION PROVIDED BY WOUND CARE 1. Patient instructed to call their primary doctor, or go the ED immediately if any of the following symptoms occur: * Increased pain in wound * Increase in drainage from the wound * Redness in the skin surrounding the wound * Warmth in the skin surrounding the wound * Bleeding from the wound * Temperature of 101 or greater 2. If any of these occur while in the hospital tell a nurse immediately. WOUND VAC EDUCATION PROVIDED BY WOUND CARE 1. Patient instructed to call the Wound Center or their Home Health Agency immediately if: * They notice a change in the color or amount of the fluid in the canister. * Their wound looks more red than usual or has a foul smell. * The skin around their wound looks reddened or irritated. * The dressing feels loose or appears to be loose. * They experience any increase or changes in their pain. * The alarm will not turn off. 2. Patient instructed that they should not be disconnected from suction for more than 2 hours at a time. * If they are not able to get the suction back on, they need to remove the dressing and take all of the foam out of the wound. * Then moisten sterile gauze with normal saline and place on/in the wound. * Change the dressing once a day until arrangements have been made to replace the wound vac dressing. 3. Patient instructed to turn the wound vac machine OFF and call 911 or go to the ED immediately if their canister fills rapidly with blood. 4. If any of these occur while in the hospital tell a nurse immediately. Addendum: 07/04/21 at 1541 by Phoebe Merchant RN Amended: Links added.
[2021-07-04 20:00] VITALS: BP 107/62
[2021-07-04] MEDS: warfarin 1mg tablet PO SCH (20:02)
[2021-07-04] MEDS: warfarin 5mg tablet PO SCH (20:03)
[2021-07-04] MEDS: potassium 20mEq/D5LR 1,000 ML IV SCH (21:00)
[2021-07-05] VITALS: BP 114/63
[2021-07-05] MEDS: potassium 20mEq/D5LR 1,000 ML IV SCH ×3 (00:16→21:00)
[2021-07-05] MEDS: HYDROmorph./NS 0.2 mg/ml CADD 100 ML IV SCH ×11 (01:00→23:00)
[2021-07-05] MEDS: diphenhydrAMINE 50 mg/ml inj IV PRN ×3 (04:41→21:59)
[2021-07-05 06:05] LABS: BASOPHILS % (AUTO) 0.4 % (0-1); EOSINOPHILS # (AUTO) 0.2 X10'3 (0-0.9); EOSINOPHILS % (AUTO) 1.7 % (0-6); HEMATOCRIT 37.6 % (42.0-52.0); HEMOGLOBIN 12.8 g/dl (14.0-17.9); LYMPHOCYTES # (AUTO) 2.8 X10'3 (1.1-4.8); MEAN CORPUSCULAR HEMOGLOBIN 33.3 PG (27.0-31.0); MEAN CORPUSCULAR VOLUME 97.9 FL (78-98); MEAN PLATELET VOLUME 8.1 FL (7.4-10.4); MONOCYTES # (AUTO) 2.4 X10'3 (0-0.9); MONOCYTES % (AUTO) 20.7 % (2-12); NEUTROPHILS # (AUTO) 6.3 X10'3 (1.8-7.7); NEUTROPHILS % (AUTO) 53.2 % (42-75); PLATELET COUNT 279 X10'3 (140-440); RED BLOOD COUNT 3.84 X10'6 (4.70-6.10); RED CELL DISTRIBUTION WIDTH 14.4 % (11.5-14.5); WHITE BLOOD COUNT 11.8 X10'3 (4.5-11.0)
[2021-07-05 06:24] LABS: ANION GAP 4 (8-16); BLOOD UREA NITROGEN 7 MG/DL (7-18); CALCIUM 7.7 MG/DL (8.5-10.1); CHLORIDE 108 MMOL/L (99-107); CREATININE 0.78 MG/DL (0.60-1.10); GLUCOSE 110 MG/DL (70-104); POTASSIUM 3.5 MMOL/L (3.5-5.1); SODIUM 141 MMOL/L (135-145); TOTAL CARBON DIOXIDE 29.4 MMOL/L (24-32); eGFR > 90 ML/MIN
--- NOTE | 2021-07-05 06:39 | NUR ---
Patient reports IV irritation and burning at site.IVF stopped and incoming RN Neonfareed updated and will start new IV.
[2021-07-05 07:00] VITALS: BP 105/66
[2021-07-05] MEDS: enoxaparin 100mg/ml syringe SUBCUT SCH ×2 (08:42→20:29)
[2021-07-05 11:00] VITALS: BP 110/67
--- NOTE | 2021-07-05 18:35 | NUR ---
Report received from Bernardo PERRY
[2021-07-05 20:00] VITALS: BP 101/51
[2021-07-05] MEDS: warfarin 5mg tablet PO SCH (20:30)
[2021-07-05] MEDS: warfarin 1mg tablet PO SCH (20:31)
[2021-07-05] MEDS: diatr meglu/diatrizoate 30ml oral sol.-(3 dose) bottle PO SCH (20:33)
[2021-07-06] VITALS: BP 104/56
[2021-07-06] MEDS: HYDROmorph./NS 0.2 mg/ml CADD 100 ML IV SCH ×11 (01:00→23:00)
[2021-07-06] MEDS: diphenhydrAMINE 50 mg/ml inj IV PRN ×3 (04:44→20:56)
[2021-07-06] MEDS: potassium 20mEq/D5LR 1,000 ML IV SCH ×2 (06:04→17:19)
[2021-07-06 06:09] LABS: BASOPHILS # (AUTO) 0.1 X10'3 (0-0.2); BASOPHILS % (AUTO) 0.5 % (0-1); EOSINOPHILS # (AUTO) 0.5 X10'3 (0-0.9); EOSINOPHILS % (AUTO) 5.2 % (0-6); HEMATOCRIT 36.1 % (42.0-52.0); HEMOGLOBIN 12.7 g/dl (14.0-17.9); LYMPHOCYTES # (AUTO) 2.4 X10'3 (1.1-4.8); LYMPHOCYTES % (AUTO) 23.6 % (21-51); MEAN CORPUSCULAR HEMOGLOBIN 34.1 PG (27.0-31.0); MEAN CORPUSCULAR HGB CONC 35.3 g/dL (33.0-36.5); MEAN CORPUSCULAR VOLUME 96.7 FL (78-98); MEAN PLATELET VOLUME 8.3 FL (7.4-10.4); MONOCYTES # (AUTO) 2.1 X10'3 (0-0.9); MONOCYTES % (AUTO) 20.2 % (2-12); NEUTROPHILS # (AUTO) 5.2 X10'3 (1.8-7.7); NEUTROPHILS % (AUTO) 50.5 % (42-75); PLATELET COUNT 313 X10'3 (140-440); RED BLOOD COUNT 3.73 X10'6 (4.70-6.10); RED CELL DISTRIBUTION WIDTH 13.9 % (11.5-14.5); WHITE BLOOD COUNT 10.3 X10'3 (4.5-11.0)
[2021-07-06 06:46] LABS: ANION GAP 7 (8-16); BLOOD UREA NITROGEN 5 MG/DL (7-18); BUN/CREATININE RATIO 6.7 (5.4-32.0); CALCIUM 7.8 MG/DL (8.5-10.1); CHLORIDE 108 MMOL/L (99-107); CREATININE 0.75 MG/DL (0.60-1.10); GLUCOSE 88 MG/DL (70-104); POTASSIUM 3.5 MMOL/L (3.5-5.1); SODIUM 143 MMOL/L (135-145); TOTAL CARBON DIOXIDE 27.7 MMOL/L (24-32); eGFR > 90 ML/MIN
[2021-07-06 07:00] VITALS: BP 103/55
[2021-07-06] MEDS: diatr meglu/diatrizoate 30ml oral sol.-(3 dose) bottle PO SCH ×2 (07:36→10:14)
[2021-07-06] MEDS: enoxaparin 100mg/ml syringe SUBCUT SCH (07:36)
[2021-07-06 11:00] VITALS: BP 116/66
--- NOTE | 2021-07-06 18:15 | NUR ---
Patient in room [facility]. I have received report from ORLANDO Chang and had the opportunity to ask questions and assume patient care.
[2021-07-06 19:00] VITALS: BP 113/70
[2021-07-06] MEDS: ceFOXitin 2GM-NS 100mL ADDvant 100 ML IV SCH (20:56)
[2021-07-06] MEDS: warfarin 5mg tablet PO SCH (20:59)
[2021-07-06] MEDS: warfarin 1mg tablet PO SCH (20:59)
--- NOTE | 2021-07-06 23:50 | NUR ---
Pt has redness and feels hot to touch on Lt side, has also been running a low grade temp with the highest temp at 100.8. Ricardo Bone RN assessed patient and we will continue to monitor.
[2021-07-07] VITALS: BP 105/60
[2021-07-07] MEDS: HYDROmorph./NS 0.2 mg/ml CADD 100 ML IV SCH ×12 (01:00→23:00)
[2021-07-07] MEDS: potassium 20mEq/D5LR 1,000 ML IV SCH ×3 (02:00→19:25)
[2021-07-07] MEDS: ceFOXitin 2GM-NS 100mL ADDvant 100 ML IV SCH ×3 (02:20→14:58)
[2021-07-07 06:51] LABS: ANION GAP 10 (8-16); BLOOD UREA NITROGEN 6 MG/DL (7-18); BUN/CREATININE RATIO 7.2 (5.4-32.0); CALCIUM 7.6 MG/DL (8.5-10.1); CHLORIDE 105 MMOL/L (99-107); CREATININE 0.83 MG/DL (0.60-1.10); GLUCOSE 95 MG/DL (70-104); POTASSIUM 3.7 MMOL/L (3.5-5.1); SODIUM 140 MMOL/L (135-145); TOTAL CARBON DIOXIDE 25.4 MMOL/L (24-32); eGFR > 90 ML/MIN
[2021-07-07 06:56] LABS: BASOPHILS # (AUTO) 0.1 X10'3 (0-0.2); BASOPHILS % (AUTO) 0.5 % (0-1); EOSINOPHILS # (AUTO) 0.4 X10'3 (0-0.9); EOSINOPHILS % (AUTO) 3.3 % (0-6); HEMATOCRIT 37.3 % (42.0-52.0); HEMOGLOBIN 12.6 g/dl (14.0-17.9); LYMPHOCYTES # (AUTO) 2.6 X10'3 (1.1-4.8); LYMPHOCYTES % (AUTO) 20.1 % (21-51); MEAN CORPUSCULAR HEMOGLOBIN 33.2 PG (27.0-31.0); MEAN CORPUSCULAR HGB CONC 33.9 g/dL (33.0-36.5); MEAN CORPUSCULAR VOLUME 97.8 FL (78-98); MEAN PLATELET VOLUME 8.3 FL (7.4-10.4); MONOCYTES # (AUTO) 3.2 X10'3 (0-0.9); MONOCYTES % (AUTO) 24.8 % (2-12); NEUTROPHILS # (AUTO) 6.7 X10'3 (1.8-7.7); NEUTROPHILS % (AUTO) 51.3 % (42-75); PLATELET COUNT 347 X10'3 (140-440); RED BLOOD COUNT 3.81 X10'6 (4.70-6.10); RED CELL DISTRIBUTION WIDTH 13.9 % (11.5-14.5)
[2021-07-07 07:00] VITALS: BP 95/53
[2021-07-07] MEDS ORDERED: HYDROcodone/acetaminophen 10/325mg tab PO PRN (07:15)
--- NOTE | 2021-07-07 07:17 | NUR ---
Sopke with Francisca Rojo about patient's Lt sided redness, heat and the low grade temp he is having. He said he will add the order for the patient to be switched to Zosyn. Pt also without an IV at this time and unable to receive pain medication from the CADD pump. ordered Brimson 10 PO for pain until IV is placed.
[2021-07-07 07:40] VITALS: BP 107/58
--- NOTE | 2021-07-07 07:50 | NUR ---
Charge Nurse ORLANDO Martines taking over care of patient's. She received report from the operations supervisor 2nd shift Charge ORLANDO Bone.
--- NOTE | 2021-07-07 08:23 | NUR ---
I was able to get a peripheral IV catheter g22 on patient's left hand this am. Resumed IVF running including Dilaudid CADD. I noticed on the eMAR the Dilaudid CADD on hold status. I called pharmacy and explained that patient was given Marshall only because patient has no IV to received the Dilaudid and now that I got an IV we should resume the Dilaudid CADD and put Marshall on hold. Patient was educated about the risk of respiratory depression and not to push the Dilaudid MECHANICAL INSPECTOR button unless absolutely needed due to risk of respiratory depression especially he also received Marshall and then now he used Dilaudid MECHANICAL INSPECTOR. Patient verbalized understanding of this instruction
[2021-07-07 08:54] LABS: TOTAL CELLS COUNTED 100
[2021-07-07 08:56] LABS: ACANTHOCYTES FEW; ELLIPTOCYTES FEW; PLATELET ESTIMATE NORMAL; TEAR DROP CELLS 1+
[2021-07-07 08:57] LABS: BURR CELLS FEW
--- NOTE | 2021-07-07 12:18 | NUR ---
Left abdomen NASIR drain discontinued as per Dr. Coppola's order. Patient tolerated well. Manual pressure dressing applied and then covered the site with optifoam
[2021-07-07 14:00] VITALS: BP 100/52
--- NOTE | 2021-07-07 15:10 | NUR ---
from 07:00am to 13:00 Lalo SAVAGE residual volume were not noted, was forgotten to write them down. I only noted of # of attempts and # of dose given. I was not exactly sure of the exact residual volume during those time
[2021-07-07] MEDS: piperacillin/tazo 3.375gm/50ml 50 ML IV SCH (16:01)
--- NOTE | 2021-07-07 18:16 | NUR ---
Patient in room [facility]. I have received report from ORLANDO Martines and had the opportunity to ask questions and assume patient care.
[2021-07-07] MEDS: lactobacillus rhamnosus 10,000 MMU CELLS/CAPSULE PO SCH (19:25)
[2021-07-07] MEDS: diphenhydrAMINE 50 mg/ml inj IV PRN (22:54)
[2021-07-08] VITALS: BP 108/55
[2021-07-08] MEDS: piperacillin/tazo 3.375gm/50ml 50 ML IV SCH ×4 (00:52→23:58)
[2021-07-08] MEDS: HYDROmorph./NS 0.2 mg/ml CADD 100 ML IV SCH ×8 (01:00→15:00)
[2021-07-08] MEDS: diphenhydrAMINE 50 mg/ml inj IV PRN ×3 (05:07→21:15)
[2021-07-08 07:00] VITALS: BP 109/59
[2021-07-08] MEDS: lactobacillus rhamnosus 10,000 MMU CELLS/CAPSULE PO SCH ×2 (07:44→21:15)
[2021-07-08 11:00] VITALS: BP 102/58
[2021-07-08] MEDS: potassium 20mEq/D5LR 1,000 ML IV SCH (13:01)
--- NOTE | 2021-07-08 14:17 | NUR ---
Reassessment: Pt continues on Clear liquid diet w/ low PO intake, mostly 25% of meals not meeting needs. Recommend advancing to Regular diet per MD discretion as pt on day 6 of poor nutrition and pt could benefit from Soham smoothies to aid w/ wound healing. Pt also receiving KCl/D5LR at 50ml/hr providing additional 204kcals/day. LBM 07/07. Limited nutrition interventions at this time, will continue to monitor. Recommendations: 1) Advance to regular diet as medically indicated 2) Monitor need for ONS/additional protein with diet advancement 3) Bowel care PRN 4) Weekly scaled weights Addendum: 07/08/21 at [address] Amended: Links added.
[2021-07-08 18:00] VITALS: BP 102/63
[2021-07-08] MEDS ORDERED: oxyCODONE/APAP 5-325mg tablet PO PRN ×2 (18:20)
--- NOTE | 2021-07-08 18:30 | NUR ---
Patient in room [facility]. I have received report from ORLANDO Restrepo and had the opportunity to ask questions and assume patient care.
[2021-07-08] MEDS: CADD PCA waste documentation MC PRN (21:16)
[2021-07-09] VITALS: BP 104/58
[2021-07-09 06:00] VITALS: BP 106/64
--- NOTE | 2021-07-09 06:23 | NUR ---
Problems reprioritized. Patient report given, questions answered & plan of care reviewed with ORLANDO Thompson.
--- NOTE | 2021-07-09 06:30 | NUR ---
Patient in room [facility] 355. I have received report from ORLANDO Wheeler and had the opportunity to ask questions and assume patient care.
[2021-07-09] MEDS: piperacillin/tazo 3.375gm/50ml 50 ML IV SCH (07:22)
[2021-07-09] MEDS: lactobacillus rhamnosus 10,000 MMU CELLS/CAPSULE PO SCH (07:22)
[2021-07-09] MEDS ORDERED: PER5325T PO (10:23)
[2021-07-09] MEDS ORDERED: AMOX-422 PO (10:23)
[2021-07-09] MEDS ORDERED: amox tr/potassium clavulanate 875/125mg TAB PO SCH (10:23)
== END 2021-07-09 12:14 | disposition home or self-care (01) | DRG 227 ==
LOC: PAS 11:00 → SUR 3N 18:38 → PAS 18:38 → SUR 3N 19:07 → UNDOADMIN 19:07
PROVIDERS: ADMIT Surgery; ATTEND Surgery
PROC: 0WJF4ZZ Inspection of Abdominal Wall, Percutaneous Endoscopic Approach (ICD-10-PCS; 2021-07-02)
PROC: 0DNW0ZZ Release Peritoneum, Open Approach (ICD-10-PCS; 2021-07-02)
PROC: 0WQF0ZZ Repair Abdominal Wall, Open Approach (ICD-10-PCS; principal; 2021-07-02 13:22)
DX: K43.2 Incisional hernia without obstruction or gangrene (principal); K56.7 Ileus, unspecified; T81.41XA Infection following a procedure, superficial incisional surgical site, initial encounter; Y83.8 Other surgical procedures as the cause of abnormal reaction of the patient, or of later complication, without mention of misadventure at the time of the procedure; Y92.230 Patient room in hospital as the place of occurrence of the external cause; Z90.49 Acquired absence of other specified parts of digestive tract
CPT/HCPCS: 36415; 74176; 80048; 80053; 82948; 83605; 85007; 85008; 85025; 85610; 85730; 87040; 87081; 93005; A4215; A4618; A5200; A6550; C1758; C9290; G0378; J0690; J0694; J1100; J1170; J1200; J1650; J2175; J2250; J2270; J2405; J2543; J2704; J2710; J3010; J3480; J3490; J7120; Q9963; U0003; U0005

== ENCOUNTER 2021-11-08 19:45 | Emergency (ER) | payer MEDICAID ==
[~2021-11-08] VITALS: Ht 180.3 cm; Wt 122.0 kg
[~2021-11-08 19:45] MED LIST changes: -BUPIVAcaine/PF 2.5 mg/ml (0.25%) 30ml vial ONE; -LIDOcaine 1% 30ml preserv. free vial ONE; +PER5325T PO; -cefazolin/dext.iso 2gm/50ml IV ONE; -famotidine 20mg tablet PO ONE; -ringers solution, lacted 1,000 ML IV SCH
[2021-11-08 20:08] VITALS: BP 128/75
[2021-11-08] MEDS ORDERED: normal saline 1000ML IV soln IV ONE (21:20)
[2021-11-08 21:31] LABS: BASOPHILS % (AUTO) 0.3 % (0-1); EOSINOPHILS # (AUTO) 0.1 X10'3 (0-0.9); HEMATOCRIT 43.5 % (42.0-52.0); HEMOGLOBIN 14.8 g/dl (14.0-17.9); LYMPHOCYTES # (AUTO) 2.8 X10'3 (1.1-4.8); LYMPHOCYTES % (AUTO) 29.6 % (21-51); MEAN CORPUSCULAR HEMOGLOBIN 31.4 PG (27.0-31.0); MEAN CORPUSCULAR VOLUME 92.3 FL (78-98); MEAN PLATELET VOLUME 8.1 FL (7.4-10.4); MONOCYTES # (AUTO) 1.9 X10'3 (0-0.9); NEUTROPHILS # (AUTO) 4.7 X10'3 (1.8-7.7); NEUTROPHILS % (AUTO) 49.1 % (42-75); PLATELET COUNT 296 X10'3 (140-440); RED BLOOD COUNT 4.72 X10'6 (4.70-6.10); RED CELL DISTRIBUTION WIDTH 15.1 % (11.5-14.5); WHITE BLOOD COUNT 9.6 X10'3 (4.5-11.0)
[2021-11-08] MEDS ORDERED: iohexol 350MG/ML 100ml bottle IV ONE (21:44)
[2021-11-08 21:48] LABS: ALANINE AMINOTRANSFERASE 46 U/L (12-78); ALBUMIN 2.7 G/DL (3.4-5.0); ALBUMIN/GLOBULIN RATIO 0.7 (1.1-1.5); ALKALINE PHOSPHATASE 76 IU/L (46-116); ANION GAP 11 (8-16); ASPARTATE AMINO TRANSFERASE 31 U/L (10-37); BILIRUBIN,TOTAL 0.2 MG/DL (0.1-1.0); BLOOD UREA NITROGEN 10 MG/DL (7-18); BUN/CREATININE RATIO 11.2 (5.4-32.0); CHLORIDE 114 MMOL/L (99-107); CREATININE 0.89 MG/DL (0.60-1.10); GLUCOSE 82 MG/DL (70-104); POTASSIUM 3.7 MMOL/L (3.5-5.1); SODIUM 146 MMOL/L (135-145); TOTAL CARBON DIOXIDE 20.8 MMOL/L (24-32); TOTAL PROTEIN 6.4 G/DL (6.4-8.2); eGFR > 90 ML/MIN
--- NOTE | 2021-11-08 22:17 | NUR ---
1000cc nacl don started #1
[2021-11-08 22:44] LABS: PLATELET ESTIMATE NORMAL; TOTAL CELLS COUNTED 100
[2021-11-08] MEDS ORDERED: HYDROcodone/acetaminophen 5mg/325mg tablet PO ONE (23:05)
[2021-11-08] MEDS ORDERED: CEPH250T PO (23:43)
[2021-11-08] MEDS ORDERED: METR-159 PO (23:43)
== END 2021-11-09 00:08 | disposition home or self-care (01) ==
LOC: ER 19:46
DX: I80.9 Phlebitis and thrombophlebitis of unspecified site (principal); D68.59 Other primary thrombophilia; R10.84 Generalized abdominal pain; G89.29 Other chronic pain; K66.0 Peritoneal adhesions (postprocedural) (postinfection); K52.9 Noninfective gastroenteritis and colitis, unspecified; E11.9 Type 2 diabetes mellitus without complications; Z86.718 Personal history of other venous thrombosis and embolism; Z90.49 Acquired absence of other specified parts of digestive tract; Z72.89 Other problems related to lifestyle; Z79.2 Long term (current) use of antibiotics; Z79.899 Other long term (current) drug therapy
CPT/HCPCS: 36415; 74174; 80053; 84145; 85007; 85025; 85610; 93971; 99285; J7030; Q9967

== ENCOUNTER 2022-07-04 15:02 | Emergency (ER) | payer MEDICAID ==
[~2022-07-04] VITALS: Ht 182.9 cm; Wt 120.0 kg
[2022-07-04 15:43] LABS: BASOPHILS % (AUTO) 0.5 % (0-1); EOSINOPHILS # (AUTO) 0.2 X10'3 (0-0.9); EOSINOPHILS % (AUTO) 1.8 % (0-6); HEMATOCRIT 45.6 % (42.0-52.0); HEMOGLOBIN 14.9 g/dl (14.0-17.9); LYMPHOCYTES # (AUTO) 2.3 X10'3 (1.1-4.8); LYMPHOCYTES % (AUTO) 23.9 % (21-51); MEAN CORPUSCULAR HEMOGLOBIN 31.7 PG (27.0-31.0); MEAN CORPUSCULAR HGB CONC 32.7 g/dL (33.0-36.5); MEAN PLATELET VOLUME 7.8 FL (7.4-10.4); MONOCYTES # (AUTO) 1.6 X10'3 (0-0.9); MONOCYTES % (AUTO) 16.8 % (2-12); NEUTROPHILS # (AUTO) 5.6 X10'3 (1.8-7.7); PLATELET COUNT 357 X10'3 (140-440); RED CELL DISTRIBUTION WIDTH 14.2 % (11.5-14.5); WHITE BLOOD COUNT 9.8 X10'3 (4.5-11.0)
[2022-07-04 15:46] LABS: CLARITY,URINE SLIGHTLY CLOUDY (Clear); COLOR,URINE YELLOW (Yellow); GLUCOSE, URINE NEGATIVE (Neg); KETONES,URINE NEGATIVE (Neg); LEUKOCYTE ESTERASE ,URINE NEGATIVE (Neg); NITRITES, URINE NEGATIVE (Neg); OCCULT BLOOD,URINE TRACE-INTACT (Neg); PROTEIN,URINE NEGATIVE (Neg)
[2022-07-04 15:48] LABS: UA COLLECTION TYPE CLN CATCH MIDSTREAM
[2022-07-04 15:57] LABS: MUCUS STRANDS MODERATE /LPF (Neg); SQUAMOUS EPITHELIAL CELL,UR MANY /LPF (FEW)
[2022-07-04 15:59] LABS: ALANINE AMINOTRANSFERASE 57 U/L (12-78); ALBUMIN 2.6 G/DL (3.4-5.0); ALBUMIN/GLOBULIN RATIO 0.6 (1.1-1.5); ALKALINE PHOSPHATASE 152 IU/L (46-116); ANION GAP 5 (8-16); ASPARTATE AMINO TRANSFERASE 35 U/L (10-37); BILIRUBIN,TOTAL 0.4 MG/DL (0.1-1.0); BLOOD UREA NITROGEN 12 MG/DL (7-18); BUN/CREATININE RATIO 12.2 (5.4-32.0); CHLORIDE 106 MMOL/L (99-107); CREATININE 0.98 MG/DL (0.60-1.10); GLUCOSE 106 MG/DL (70-104); LIPASE 131 U/L (73-393); POTASSIUM 4.3 MMOL/L (3.5-5.1); SODIUM 139 MMOL/L (135-145); TOTAL CARBON DIOXIDE 27.8 MMOL/L (24-32); TOTAL PROTEIN 7.3 G/DL (6.4-8.2); eGFR 89 ML/MIN
[2022-07-04 16:01] LABS: BACTERIA,URINE NONE SEEN /HPF (Neg); RBC,URINE 0-2 /HPF (0-2); WBC,URINE 0-4 /HPF (0-4)
[2022-07-04 16:03] LABS: CALCIUM 8.5 MG/DL (8.5-10.1)
[2022-07-04] MEDS ORDERED: oxyCODONE/APAP 5-325mg tablet PO ONE (21:25)
[2022-07-04] MEDS ORDERED: ketorolac trometh. 30mg/ml inj. IM ONE (21:25)
[2022-07-04 22:11] VITALS: BP 133/74
== END 2022-07-04 22:14 | disposition home or self-care (01) ==
LOC: ER 15:02
DX: R10.9 Unspecified abdominal pain (principal); R19.7 Diarrhea, unspecified; R11.0 Nausea; E11.9 Type 2 diabetes mellitus without complications; Z90.49 Acquired absence of other specified parts of digestive tract; Z79.899 Other long term (current) drug therapy
CPT/HCPCS: 80053; 81001; 83690; 85025; 96372; 99283; J1885; J7030

== ENCOUNTER 2024-12-31 10:39 | Emergency (ER) | payer BC, MEDICAID ==
[~2024-12-31] VITALS: Ht 177.8 cm; Wt 125.0 kg
--- NOTE | 2024-12-31 11:52 | Physician Documentation ---
History of Present Illness ~ Chief Complaint: Leg Pain Stated Complaint: MED REQ Time Seen by MD: 11:32 Primary Medical Doctor: CARLYN HAMMOND [facility] Mode of Arrival: Ambulatory HPI 34-year-old male presenting with left leg pain. Patient states that he has a history of a blood clotting disorder and was recently diagnosed with a left leg DVT at a hospital down in [place]. Patient reports that he has been on Coumadin and they are weaning him off the Coumadin and started him on Lovenox shots while he was down in [place]. They recommended admission but he could not stay due to work and family issues. States that they prescribed him Lovenox shots for several days however he has not been able to fill that prescription due to the pharmacy be out of this medication. States that the pharmacy had to order the medication and he has been unable to keep pick it up as it is not yet available. States that he has been off of his Lovenox for a couple of days. He is not experiencing any chest pain, shortness of breath or any other associated symptoms. Tetanus witin 5 years: No Medication Reconciliation Allergies: Coded Allergies: No Known Allergies (Unverified , 06/03/17) Scheduled Warfarin Sodium (Warfarin Sodium), 7 MG PO DAILY, (Reported) Scheduled PRN Oxycodone Hcl/Acetaminophen 5/325 MG* (Percocet 5/325 MG*), 1 TAB PO Q4H PRN for pain 4-6 Past Medical History Past Medical History: *GI/HEPATOBILIARY*, GI Bleed, Hernia, Diabetes, Deep Vein Thrombosis Past Surgical History: abdominal surgery, cholecystectomy Other Past Surgical History: splenectomy, resection of small intestine, ileostomy Patient History: (COPD) Chronic obstructive lung disease MOTHER, Not a twin (DM Type1) Diabetes mellitus type 1 Alcohol Use: Occasionally Drug Use: none Lives In: Home Occupation: employed Review of Systems All Other Systems at this time: Reviewed and Negative Physical Exam Vital Signs: Temperature: 99.2, Heart Rate: 65, Respiratory Rate: 16, BP: 141/79, Pulse Oximetry: 98, Weight: 125.000 Oxygen Flow Rate: 0 Physical Exam I have reviewed the triage vitals. CONST: Well developed and well nourished. In no acute distress HENT: Head Atraumatic EYES: Pupils are equal, round and reactive to light. Normal conjunctiva NECK: Normal range of motion. Supple. CARDIO: Normal rate and regular rhythm. No murmurs, rubs, or gallops. S1, S2. PULM/CHEST: No respiratory distress. Lungs clear to auscultation. No wheeze ABD: Soft and nontender. There is a large midline abdominal surgical scar present. Nondistended. Bowel sounds normal. No guarding. : Exam deferred MSK: Left lower extremity with edema and tenderness to palpation over the left lower leg. Tenderness palpation specifically over the popliteal fossa and lower hamstring area. NEURO: Alert and oriented to person, place and time. Moving all extremities SKIN: Warm and dry. PSYCH: Normal mood and affect. Good eye contact. Progress Results/Orders Results/Orders Orders - RAMON RASHID MD Vl Venous (12/31/24 11:48) Completed Orders - RAMON RASHID MD Cbc/Diff (12/31/24 11:48) Pt Inr (12/31/24 11:48) PTT (12/31/24 11:48) CMP (12/31/24 11:48) Vl Venous (12/31/24 11:48) Enoxaparin Syringe (Lovenox Syringe) (12/31/24 11:50) Enoxaparin Syringe (Lovenox Syringe) (12/31/24 12:00) Medications Received in ER Medications (Trade) Dose Ordered Sig/Oralia Route PRN Reason Start Time Stop Time Status Last Admin Dose Admin (Lovenox syringe) 100 mg ONCE ONCE SUBCUT 12/31/24 11:50 12/31/24 11:55 DC 12/31/24 12:54 100 MG (Lovenox syringe) 30 mg ONCE ONCE SUBCUT 12/31/24 12:00 12/31/24 12:01 DC 12/31/24 12:54 30 MG Vital Signs 12/31/24 12/31/24 12/31/24 11:17 11:32 12:55 Temp 99.2 Pulse 78 65 62 Resp 18 16 16 B/P (MAP) 134/80 141/79 (99) 119/71 (87) Pulse Ox 98 98 99 O2 Flow Rate 0 0 Laboratory Tests Test 12/31/24 12:54 White Blood Count 11.2 H Red Blood Count 4.51 L Hemoglobin 14.5 Hematocrit 43.1 Mean Corpuscular Volume 95.5 Mean Corpuscular Hemoglobin 32.2 H Mean Corpuscular Hemoglobin Concent 33.7 Red Cell Distribution Width 13.6 Platelet Count 458 H Mean Platelet Volume 7.8 Neutrophils (%) (Auto) 54.9 Lymphocytes (%) (Auto) 26.4 Monocytes (%) (Auto) 14.2 H Eosinophils (%) (Auto) 3.5 Basophils (%) (Auto) 1.0 Neutrophils # (Auto) 6.1 Lymphocytes # (Auto) 2.9 Monocytes # (Auto) 1.6 H Eosinophils # (Auto) 0.4 Basophils # (Auto) 0.1 CBC Comment Prothrombin Time 16.1 H INR International Normalized Ratio 1.6 Activated Partial Thromboplast Time 33 H Coagulation Comments Sodium Level 141 Potassium Level 4.6 Chloride Level 109 H Carbon Dioxide Level 27.4 Anion Gap 5 L Blood Urea Nitrogen 4 L Creatinine 0.88 Estimated GFR/1.73 m2 > 90 BUN/Creatinine Ratio 4.5 L Glucose Level 86 Calcium Level 8.6 Total Bilirubin 0.6 Aspartate Amino Transf (AST/SGOT) 28 Alanine Aminotransferase (ALT/SGPT) 26 Alkaline Phosphatase 110 Total Protein 7.2 Albumin 2.5 L Globulin 4.7 H Albumin/Globulin Ratio 0.5 L Chemistry Comments Medical Decision Making Additional Comment 34-year-old male presenting with a right lower extremity DVT which is known. The patient has been off of his Lovenox for a couple of days. We did do a repeat ultrasound which confirmed a DVT. Please see report for details. The patient was given a 130 mg subcutaneous injection of Lovenox. I did go ahead and refill the patient's medication and gave him a five day course of Lovenox to be injected subcutaneously. It will be sent to his pharmacy for pickup. We did discuss and recommend admission to our hospital however we do not have Hematology here and the patient declined admission in any case. He was advised that he needs to follow up closely with the primary care physician in the next 2-3 days. If he is unable to do so he was advised to return to the ED within five days or go to a different emergency department. Return to the ED sooner with any acutely worsening symptoms. Departure Disposition: HOME / SELF CARE / HOMELESS Impression: Primary Impression: DVT (deep venous thrombosis) Condition: Stable Referrals: NO PRIMARY CARE PROVIDER (PCP) Prescriptions Enoxaparin Sodium (Lovenox) 40 Mg/0.4 Ml Syringe 1.2 ML SUBCUT BID for 5 Days, #12 ML 0 Refills Prov: RAMON RASHID MD 12/31/24 Comments Please take medication as prescribed. You need follow up close with your primary care physician as well as with hematology to be weaned off of the Lovenox and placed on a long-term medication such as Xarelto or Eliquis. If you are unable to follow up with your primary care physician in the next five days please return immediately to the emergency department for further treatment and care. Return sooner with any acutely worsening symptoms. Signature Scribe Signature: 1 Attestation: 1 RAMON RASHID MD Dec 31, 2024 11:52
[2024-12-31] MEDS: enoxaparin 100mg/ml syringe SUBCUT ONE (12:54)
[2024-12-31] MEDS: enoxaparin 30mg/0.3ml syringe SUBCUT ONE (12:54)
[2024-12-31 13:13] LABS: BASOPHILS # (AUTO) 0.1 X10'3 (0-0.2); EOSINOPHILS # (AUTO) 0.4 X10'3 (0-0.9); EOSINOPHILS % (AUTO) 3.5 % (0-6); HEMATOCRIT 43.1 % (42.0-52.0); HEMOGLOBIN 14.5 g/dl (14.0-17.9); LYMPHOCYTES # (AUTO) 2.9 X10'3 (1.1-4.8); LYMPHOCYTES % (AUTO) 26.4 % (21-51); MEAN CORPUSCULAR HEMOGLOBIN 32.2 PG (27.0-31.0); MEAN CORPUSCULAR HGB CONC 33.7 g/dL (33.0-36.5); MEAN CORPUSCULAR VOLUME 95.5 FL (78-98); MEAN PLATELET VOLUME 7.8 FL (7.4-10.4); MONOCYTES # (AUTO) 1.6 X10'3 (0-0.9); MONOCYTES % (AUTO) 14.2 % (2-12); NEUTROPHILS # (AUTO) 6.1 X10'3 (1.8-7.7); NEUTROPHILS % (AUTO) 54.9 % (42-75); PLATELET COUNT 458 X10'3 (140-440); RED BLOOD COUNT 4.51 X10'6 (4.70-6.10); RED CELL DISTRIBUTION WIDTH 13.6 % (11.5-14.5); WHITE BLOOD COUNT 11.2 X10'3 (4.5-11.0)
[2024-12-31 13:29] LABS: APTT 33 SECONDS (22-32); INR 1.6 INR; PROTHROMBIN TIME 16.1 SECONDS (9.0-12.0)
[2024-12-31 13:32] LABS: ALANINE AMINOTRANSFERASE 26 U/L (12-78); ALBUMIN 2.5 G/DL (3.4-5.0); ALBUMIN/GLOBULIN RATIO 0.5 (1.1-1.5); ALKALINE PHOSPHATASE 110 IU/L (46-116); ANION GAP 5 (8-16); BILIRUBIN,TOTAL 0.6 MG/DL (0.1-1.0); BLOOD UREA NITROGEN 4 MG/DL (7-18); BUN/CREATININE RATIO 4.5 (10.0-20.0); CALCIUM 8.6 MG/DL (8.5-10.1); CHLORIDE 109 MMOL/L (99-107); CREATININE 0.88 MG/DL (0.60-1.10); GLUCOSE 86 MG/DL (70-104); SODIUM 141 MMOL/L (135-145); TOTAL CARBON DIOXIDE 27.4 MMOL/L (24-32); TOTAL PROTEIN 7.2 G/DL (6.4-8.2); eCRCL 123 ML/MIN; eGFR > 90 ML/MIN
[2024-12-31 13:33] LABS: ASPARTATE AMINO TRANSFERASE 28 U/L (10-37); POTASSIUM 4.6 MMOL/L (3.5-5.1)
--- NOTE | 2024-12-31 13:36 | VASCULAR REPORT ---
EXAM: US Duplex Left Lower Extremity Veins CLINICAL INDICATION: Reason TECHNIQUE: Real-time duplex ultrasound scan of the left lower extremity veins integrating B-mode two -dimensional vascular structure, Doppler spectral analysis, color flow Doppler imaging and compressio n. COMPARISON: None FINDINGS: DEEP VEINS: Thrombus in the left popliteal vein, left posterior tibial vein and left peroneal vein. SUPERFICIAL VEINS: Unremarkable. No thrombus in the visualized great saphenous vein. SOFT TISSUES: No acute findings. No popliteal cyst. OTHER FINDINGS: . . IMPRESSION: Thrombus in the left popliteal vein, left posterior tibial vein and left peroneal vein.
[2024-12-31] MEDS ORDERED: ENOX40SY7 SUBCUT (13:50)
[2024-12-31 14:12] VITALS: BP 114/60; PULSE 80; RESP 16; TEMP 98.6; O2SAT 96
== END 2024-12-31 14:14 | disposition home or self-care (01) ==
LOC: ER 10:40
DX: I82.432 Acute embolism and thrombosis of left popliteal vein (principal); I82.442 Acute embolism and thrombosis of left tibial vein; I82.452 Acute embolism and thrombosis of left peroneal vein; E11.9 Type 2 diabetes mellitus without complications; J44.9 Chronic obstructive pulmonary disease, unspecified; Z79.01 Long term (current) use of anticoagulants; Z90.49 Acquired absence of other specified parts of digestive tract; Z86.718 Personal history of other venous thrombosis and embolism; Z72.89 Other problems related to lifestyle
CPT/HCPCS: 36415; 80053; 85025; 85610; 85730; 93971; 96372; 99285; J1650